=== PATIENT | female | born 1970 | race Caucasian/White ===

== ENCOUNTER 2023-08-18 03:19 | Emergency (ER) | payer MEDICAID ==
[~2023-08-18] VITALS: Ht 162.6 cm; Wt 66.0 kg
[2023-08-18 03:27] VITALS: BP 110/34; PULSE 64; RESP 15; TEMP 98.6; O2SAT 94
[2023-08-18 04:54] LABS: BASOPHILS % 0.2 % (0.0-2.0); EOSINOPHILS % 1.9 % (0.0-5.0); HEMATOCRIT. 39.7 % (36.0-48.0); HEMOGLOBIN. 12.7 g/dL (12.0-16.0); LYMPHOCYTES % 17.1 % (20.0-50.0); MEAN CORPUSCULAR HEMOGLOBIN 29.5 pg (28.0-32.0); MEAN CORPUSCULAR HGB CONC 31.9 g/dL (31.0-37.0); MEAN CORPUSCULAR VOLUME 92.5 fL (81.0-99.0); MONOCYTES % 6.8 % (2.0-8.0); PLATELET 144 x1000/uL (130-400); RED BLOOD CELL COUNT 4.29 mill/uL (4.2-5.4); RED CELL DISTRIBUTION WIDTH 15.8 % (11.6-14.6); WHITE BLOOD COUNT 4.8 x1000/uL (4.5-11.0)
[2023-08-18 05:36] LABS: ALANINE AMINOTRANSFERASE 8 IU/L (10-49); ALBUMIN 4.1 g/dL (3.2-4.8); ASPARTATE AMINOTRANSFERASE 12 IU/L (<34); BILIRUBIN TOTAL 0.4 mg/dL (0.1-1.0); CALCIUM 9.3 mg/dL (8.7-10.4); CARBON DIOXIDE 29 mEq/L (21-32); CHLORIDE 107 mEq/L (98-107); CREATININE 0.6 mg/dL (0.6-1.0); GLUCOSE 99 mg/dL (70-105); POTASSIUM 4.3 mEq/L (3.5-5.1); PROTEIN TOTAL 6.4 g/dL (6.0-8.3); SODIUM 143 mEq/L (136-145); UREA NITROGEN BLOOD 11 mg/dL (9-23)
[2023-08-18 05:46] LABS: TROPONIN I HIGH SENSITIVITY < 4 ng/L (3.0-34)
[2023-08-18] MEDS ORDERED: HALOPERIDOL 5MG TABLET PO ONE (06:15)
[2023-08-18 09:29] LABS: TROPONIN I HIGH SENSITIVITY < 4 ng/L (3.0-34)
[2023-08-19] MEDS ORDERED: ALBU6.7H15 INH (16:45)
== END 2023-08-18 10:58 | disposition home or self-care (01) ==
LOC: ER 03:19
DX: J45.901 Unspecified asthma with (acute) exacerbation (principal)
CPT/HCPCS: 99285; 71045; 80053; 83880; 85025; 84484; 36415; 93005; J1630

== ENCOUNTER 2023-08-19 02:08 | Emergency (ER) | payer MEDICAID ==
[~2023-08-19] VITALS: Ht 167.6 cm; Wt 73.0 kg
[2023-08-19 02:14] VITALS: RESP 18; O2SAT 94
[2023-08-19 09:01] VITALS: BP 115/66; PULSE 83; TEMP 98.6
[2023-08-19] MEDS ORDERED: ALBU6.7H15 INH (16:45)
== END 2023-08-19 12:34 | disposition home or self-care (01) ==
LOC: ER 02:08
DX: R07.89 Other chest pain (principal)
CPT/HCPCS: 99283

== ENCOUNTER 2023-08-19 12:30 | Emergency (ER) | payer MEDICAID ==
[~2023-08-19] VITALS: Ht 165.1 cm; Wt 68.0 kg
[2023-08-19 13:03] VITALS: BP 121/47; PULSE 104; RESP 18; TEMP 98.5; O2SAT 92
[2023-08-19] MEDS ORDERED: ALBU6.7H15 INH (16:45)
== END 2023-08-19 17:20 | disposition home or self-care (01) ==
LOC: ER 12:30
DX: R45.851 Suicidal ideations (principal); J45.909 Unspecified asthma, uncomplicated; Z91.011 Allergy to milk products; Z88.1 Allergy status to other antibiotic agents; Z98.890 Other specified postprocedural states; Z86.59 Personal history of other mental and behavioral disorders
CPT/HCPCS: 99283

== ENCOUNTER 2023-08-19 17:23 | Emergency (ER) | payer MEDICAID ==
[~2023-08-19] VITALS: Ht 160 cm; Wt 68.0 kg
[~2023-08-19 17:23] MED LIST: ALBU6.7H15 INH
[2023-08-19 17:38] VITALS: BP 126/51; PULSE 80; RESP 18; TEMP 98.2; O2SAT 92
== END 2023-08-19 21:30 | disposition home or self-care (01) ==
LOC: ER 17:23
DX: J44.9 Chronic obstructive pulmonary disease, unspecified (principal); F32.A Depression, unspecified; F41.9 Anxiety disorder, unspecified; F20.9 Schizophrenia, unspecified; Z76.0 Encounter for issue of repeat prescription; Z91.011 Allergy to milk products; Z88.8 Allergy status to other drugs, medicaments and biological substances
CPT/HCPCS: 99281

== ENCOUNTER 2023-08-20 00:50 | Emergency (ER) | payer MEDICAID ==
[~2023-08-20] VITALS: Ht 162.6 cm; Wt 63.0 kg
[2023-08-20 00:55] VITALS: BP 103/39; RESP 18; TEMP 98.3; O2SAT 94
[2023-08-20 00:57] VITALS: PULSE 88
[2023-08-20 03:44] LABS: BASOPHILS % 0.3 % (0.0-2.0); EOSINOPHILS % 2.6 % (0.0-5.0); HEMATOCRIT. 41.4 % (36.0-48.0); HEMOGLOBIN. 13.4 g/dL (12.0-16.0); MEAN CORPUSCULAR HEMOGLOBIN 29.9 pg (28.0-32.0); MEAN CORPUSCULAR HGB CONC 32.3 g/dL (31.0-37.0); MEAN CORPUSCULAR VOLUME 92.5 fL (81.0-99.0); MONOCYTES % 8.2 % (2.0-8.0); NEUTROPHILS % 68.9 % (40.0-76.0); PLATELET 206 x1000/uL (130-400); RED BLOOD CELL COUNT 4.48 mill/uL (4.2-5.4); RED CELL DISTRIBUTION WIDTH 15.3 % (11.6-14.6)
[2023-08-20 03:50] LABS: ALANINE AMINOTRANSFERASE 7 IU/L (10-49); ALBUMIN 4.6 g/dL (3.2-4.8); ASPARTATE AMINOTRANSFERASE 15 IU/L (<34); BILIRUBIN TOTAL 0.8 mg/dL (0.1-1.0); CALCIUM 9.4 mg/dL (8.7-10.4); CARBON DIOXIDE 28 mEq/L (21-32); CHLORIDE 105 mEq/L (98-107); CREATININE 0.6 mg/dL (0.6-1.0); GLUCOSE 100 mg/dL (70-105); POTASSIUM 3.9 mEq/L (3.5-5.1); PROTEIN TOTAL 6.6 g/dL (6.0-8.3); SODIUM 140 mEq/L (136-145); UREA NITROGEN BLOOD 8 mg/dL (9-23)
[2023-08-20 03:51] LABS: TROPONIN I HIGH SENSITIVITY < 4 ng/L (3.0-34)
== END 2023-08-20 09:00 | disposition left against medical advice (07) ==
LOC: ER 01:54
DX: R07.89 Other chest pain (principal); Z53.21 Procedure and treatment not carried out due to patient leaving prior to being seen by health care provider; Z91.011 Allergy to milk products; Z88.1 Allergy status to other antibiotic agents
CPT/HCPCS: 36415; 80053; 84484; 85025; 99283

== ENCOUNTER 2023-08-20 09:23 | Emergency (ER) | payer MEDICAID ==
[~2023-08-20] VITALS: Ht 162.6 cm; Wt 54.0 kg
[2023-08-20 09:29] VITALS: O2SAT 97
[2023-08-20 13:34] LABS: BASOPHILS % 0.4 % (0.0-2.0); EOSINOPHILS % 1.5 % (0.0-5.0); HEMATOCRIT. 39.7 % (36.0-48.0); HEMOGLOBIN. 12.8 g/dL (12.0-16.0); LYMPHOCYTES % 18.4 % (20.0-50.0); MEAN CORPUSCULAR HEMOGLOBIN 29.7 pg (28.0-32.0); MEAN CORPUSCULAR HGB CONC 32.2 g/dL (31.0-37.0); MEAN CORPUSCULAR VOLUME 92.2 fL (81.0-99.0); MEAN PLATELET VOLUME 8.8 fl (7.4-10.4); MONOCYTES % 7.5 % (2.0-8.0); NEUTROPHILS % 72.2 % (40.0-76.0); PLATELET 193 x1000/uL (130-400); RED BLOOD CELL COUNT 4.31 mill/uL (4.2-5.4); RED CELL DISTRIBUTION WIDTH 14.9 % (11.6-14.6); WHITE BLOOD COUNT 6.6 x1000/uL (4.5-11.0)
[2023-08-20 13:52] LABS: HCG SCREEN NEGATIVE
[2023-08-20 13:53] LABS: ACETAMINOPHEN < 2 ug/mL (10-30); CALCIUM 8.8 mg/dL (8.7-10.4); CARBON DIOXIDE 28 mEq/L (21-32); CHLORIDE 108 mEq/L (98-107); CREATININE 0.6 mg/dL (0.6-1.0); GLUCOSE 103 mg/dL (70-105); POTASSIUM 3.9 mEq/L (3.5-5.1); SODIUM 142 mEq/L (136-145); UREA NITROGEN BLOOD 10 mg/dL (9-23)
[2023-08-20 14:01] LABS: ETHANOL BLOOD < 10 mg/dL (<10)
[2023-08-20] MEDS ORDERED: IPRATROPIUM/ALBUTEROL 0.5-3(2.5)MG/3ML NEB HHN ONE (15:00)
[2023-08-20] MEDS ORDERED: OLANZAPINE 10 MG/VIAL IM ONE (22:45)
[2023-08-20 23:49] LABS: CLARITY URINE CLEAR (CLEAR); COLOR URINE YELLOW (YELLOW); GLUCOSE URINE NEGATIVE (NEGATIVE); KETONES URINE NEGATIVE (NEGATIVE); LEUKOCYTE ESTERASE URINE NEGATIVE (NEGATIVE); NITRITE URINE NEGATIVE (NEGATIVE); OCCULT BLOOD URINE NEGATIVE (NEGATIVE); PROTEIN URINE NEGATIVE (NEGATIVE); SPECIFIC GRAVITY URINE 1.007 (1.005-1.030); UROBILINOGEN URINE 0.2 E.U./dL (0.2-1.0)
[2023-08-21 00:01] LABS: *AMPHETAMINES SCREEN URINE NEGATIVE (NEGATIVE); *BARBITURATES SCREEN URINE NEGATIVE (NEGATIVE); *BENZODIAZEPINES SCREEN URINE NEGATIVE (NEGATIVE); *COCAINE SCREEN URINE NEGATIVE (NEGATIVE); CANNABINOID URINE SCREEN NEGATIVE (NEGATIVE); ECSTASY MDMA SCREEN URINE NEGATIVE (NEGATIVE); METHADONE URINE SCREEN Neg (NEGATIVE); OPIATES URINE SCREEN NEGATIVE (NEGATIVE); PHENCYCLIDINE URINE SCREEN NEGATIVE (NEGATIVE)
[2023-08-21] MEDS: OLANZAPINE 5MG TABLET ODT PO SCH ×2 (11:00→18:58)
[2023-08-22] MEDS: OLANZAPINE 5MG TABLET ODT PO SCH (09:00)
[2023-08-22] MEDS ORDERED: ACETAMINOPHEN 325MG TABLET PO SCH (11:00)
[2023-08-22 13:04] VITALS: BP 120/50; PULSE 92; RESP 14; TEMP 99.2
== END 2023-08-22 13:16 | disposition short-term general hospital (02) ==
LOC: ER 09:23
DX: F99 Mental disorder, not otherwise specified (principal); J45.909 Unspecified asthma, uncomplicated; Z20.822 Contact with and (suspected) exposure to COVID-19; Z76.5 Malingerer [conscious simulation]; Z59.00 Homelessness unspecified; Z91.011 Allergy to milk products; Z88.1 Allergy status to other antibiotic agents
CPT/HCPCS: 80305; 80048; 81003; 80307; 80329; 80320; 84703; 85025; 36415; 96372; 99285; 87426; J3490; G0480